=== PATIENT | male | born 1995 | race Caucasian/White ===

== ENCOUNTER 2018-05-05 04:53 | Emergency (ER) | payer OTHER ==
[~2018-05-05] VITALS: Ht 170.2 cm; Wt 59.4 kg
--- NOTE | 2018-05-05 04:53 | NUR ---
PT BIB [facility], PREBOOK. TAKEN TO CHAIR E
[2018-05-05 04:55] VITALS: BP 144/93
--- NOTE | 2018-05-05 04:58 | NUR ---
Dr. Wallis evaluating patient
[2018-05-05 05:05] VITALS: BP 144/93
--- NOTE | 2018-05-05 05:05 | NUR ---
PATIENT BIB [facility]. PATIENT EXAMINED BY DR. HERNANDEZ. PATIENT MEDICALLY CLEARED AND RELEASED IN CUSTODY IN STABLE CONDITION. ORIGINAL PRE-BOOK FORM GIVEN TO OFFICER #[id number].
== END 2018-05-05 05:05 ==
LOC: MED 04:53
DX: Z02.89 Encounter for other administrative examinations (principal); V49.69XA Unspecified car occupant injured in collision with other motor vehicles in traffic accident, initial encounter; W22.10XA Striking against or struck by unspecified automobile airbag, initial encounter; Y93.89 Activity, other specified; Y92.410 Unspecified street and highway as the place of occurrence of the external cause; Y99.8 Other external cause status
CPT/HCPCS: 99283